=== PATIENT | female | born 1970 | race Caucasian/White ===

== ENCOUNTER → 2020-12-15 04:19 | Outpatient (CLI) | payer OTHER ==
[2020-12-15 04:41] LABS: ANION GAP 13.3 mmol/L (8-16); CALCIUM 8.7 mg/dL (8.5-10.1); CARBON DIOXIDE 31.3 mmol/L (21.0-32.0); POTASSIUM - SERUM 4.6 mmol/L (3.5-5.1); VALPROIC ACID (DEPAKOTE) 50.5 ug/mL (50.0-100.0)
[2020-12-15 04:44] LABS: BASOPHILS 0.5 % (0-2); EOSINOPHILS 1.3 % (0-7); HEMATOCRIT 40.7 % (36.0-48.0); HEMOGLOBIN 12.4 g/dL (12-16); IMMATURE GRANULOCYTES 0.3 % (0-5); LYMPHOCYTE ABS# 1.96 10x3/uL (1.18-3.74); LYMPHOCYTES 31.6 % (15-50); MCH 30.5 pg (26.0-34.0); MCHC 30.5 g/dL (31.0-37.0); MEAN PLATELET VOLUME 10.9 fL (7.4-10.4); MONOCYTES 7.2 % (2-11); NEUTROPHIL ABS# 3.67 10x3/uL (1.56-6.13); NEUTROPHILS 59.1 % (40-80); PLATELET COUNT 265 10x3/uL (130-400); RBC 4.07 10x6/uL (4.00-5.40); RDW 12.9 % (11.5-14.5); WBC 6.2 10x3/uL (4.8-10.8)
== END | disposition home or self-care (01) ==
LOC: D.LABREF 04:19
PROVIDERS: ATTEND Family Medicine
DX: Z51.81 Encounter for therapeutic drug level monitoring (principal); G40.89 Other seizures; J96.01 Acute respiratory failure with hypoxia

== ENCOUNTER → 2021-01-10 18:02 | Outpatient (CLI) | payer OTHER | END | disposition home or self-care (01) | LOC: D.LABREF 18:02 | PROVIDERS: ATTEND Family Medicine | DX: Z51.81 Encounter for therapeutic drug level monitoring (principal) ==